=== PATIENT | male | born 1960 | race Caucasian/White ===

== ENCOUNTER 2019-03-16 02:11 | Emergency (ER) | payer BC ==
[~2019-03-16] VITALS: Ht 177.8 cm; Wt 86.3 kg
[2019-03-16] MEDS ORDERED: LORA-269 PO (02:21)
[2019-03-16 02:43] VITALS: BP 148/90
== END 2019-03-16 02:45 | disposition home or self-care (01) ==
LOC: ER 02:12
DX: F41.9 Anxiety disorder, unspecified (principal); Z79.899 Other long term (current) drug therapy
CPT/HCPCS: 99284